=== PATIENT | male | born 1995 ===

== ENCOUNTER 2021-09-20 18:57 | Emergency (ER) | payer SELFPAY ==
[2021-09-20] MEDS ORDERED: Diphtheria,Pertussis(Acell),Tetanus Vaccine 0.5 ML Syringe IM ONE (19:27)
[2021-09-20] MEDS ORDERED: Lidocaine 1% 30 ML SDV INJECT ONE (19:27)
[2021-09-20] MEDS ORDERED: Bacitracin Oint 1 GM U/D Packet TOP ONE (19:27)
== END 2021-09-20 21:24 | disposition home or self-care (01) ==
LOC: DL.ED 18:57
DX: S81.812A Laceration without foreign body, left lower leg, initial encounter (principal); Z23 Encounter for immunization; W01.0XXA Fall on same level from slipping, tripping and stumbling without subsequent striking against object, initial encounter
CPT/HCPCS: 12001; 73590-LT; 90471; 90715; 99283-25; 99284